=== PATIENT | male | born 1970 | race Caucasian/White ===

== ENCOUNTER → 2018-11-17 | Outpatient (CLI) | payer BC ==
--- NOTE | 2018-11-17 17:16 | CT ---
EXAMINATION TYPE: CT abdomen w con DATE OF EXAM: 11/17/2018 COMPARISON: None HISTORY: Abdominal pain and constipation x1 month. CT DLP: 1055.1 mGycm Automated exposure control for dose reduction was used. TECHNIQUE: Helical acquisition of images was performed from the lung bases through the top of iliac crest to include entire abdomen. CONTRAST: Performed with Oral Contrast and with IV Contrast, patient injected with 100ml mL of Isovue 300. FINDINGS: Lung bases are clear of infiltrate. There is no pleural effusion. Heart size is normal. There is slight decreased density in the liver consistent with some fatty infiltration. Spleen appear s normal. Stomach appears normal. Gallbladder appears normal. Bile ducts are not dilated. There is no evidence of pancreatic mass. There is a 1 cm nodule on the left adrenal gland. Kidneys show satisfactory contrast opacification. T here is no hydronephrosis. There is 3 cm cortical cyst upper pole left kidney. There is no retroperit meza adenopathy. Ureters are not dilated. There is no sign of mesenteric edema. There is contrast in the appendix which appears normal. Small b owel appears normal. There is no free air. There is no ascites. IMPRESSION: MILD FATTY INFILTRATION OF THE LIVER. LEFT RENAL CORTICAL CYST. LEFT ADRENAL NODULE WITH SOFT TISSUE DENSITY IS INDETERMINATE. I DO NOT SEE A CAUSE FOR ABDOMINAL JENNIFER N.
== END | disposition home or self-care (01) ==
LOC: RADCTMAIN 15:45
PROVIDERS: ATTEND Family Medicine
DX: K76.0 Fatty (change of) liver, not elsewhere classified (principal); K76.89 Other specified diseases of liver
CPT/HCPCS: 74160; Q9967

== ENCOUNTER 2020-03-02 11:23 | Observation (INO) | payer BC ==
[2020-03-02] MEDS: SODIUM CHLORIDE 0.9% 1,000 ML IV SCH (13:30)
[2020-03-02 14:36] LABS: Basophils # (A) 0.1 k/uL (0-0.2); Basophils % (A) 1 %; Eosinophils # (A) 0.2 k/uL (0-0.7); Eosinophils % (A) 2 %; HCT 48.2 % (39.0-53.0); HGB 16.6 gm/dL (13.0-17.5); Lymphocytes # (A) 1.6 k/uL (1.0-4.8); Lymphocytes % (A) 20 %; MCH 35.5 pg (25.0-35.0); MCHC 34.5 g/dL (31.0-37.0); MCV 102.9 fL (80.0-100.0); Macrocytosis Slight; Mean Platelet Volume 7.4; Monocytes # (A) 0.6 k/uL (0-1.0); Monocytes % (A) 7 %; Neutrophils # (A) 5.2 k/uL (1.3-7.7); Neutrophils % (A) 67 %; Platelet Count 201 k/uL (150-450); RBC 4.68 m/uL (4.30-5.90); RDW 13.2 % (11.5-15.5); WBC 7.8 k/uL (3.8-10.6)
[2020-03-02 15:03] LABS: African American GFR (CKD) >90 (>60 ml/min/1.73 sqM); Anion Gap 6 mmol/L; Blood Urea Nitrogen 20 mg/dL (9-20); Calcium 9.1 mg/dL (8.4-10.2); Carbon Dioxide 26 mmol/L (22-30); Chloride 106 mmol/L (98-107); Glucose 100 mg/dL (74-99); Non-African American GFR(CKD) >90 (>60 ml/min/1.73 sqM); Potassium 4.4 mmol/L (3.5-5.1); Sodium 138 mmol/L (137-145)
--- NOTE | 2020-03-02 15:57 | CT ---
EXAMINATION TYPE: CT lumbar spine wo con DATE OF EXAM: 03/02/2020 3:36 PM COMPARISON: None HISTORY: Bilateral leg pain. CT DLP: 1001.5 mGycm Automated exposure control for dose reduction was used. Unenhanced CT of the lumbar spine was performed. Bone and soft tissue window settings are submitted as well as coronal and sagittal reconstructions. L1-L2: Normal disc space height. No disc herniation protrusion or central stenosis. No facet joint arthropathy. No evidence for foraminal encroachment. L2-L3: Normal disc space height. No disc herniation protrusion or central stenosis. No facet joint arthropathy. No evidence for foraminal encroachment. L3-L4: Moderate degenerative disc space narrowing. Moderate circumferential disc bulge greatest poste riorly with effacement of the ventral thecal sac. Borderline central stenosis suspected. Bilateral la teral recess stenosis noted. Bilateral foraminal encroachment. L4-L5: Moderate degenerative disc space narrowing. Moderate circumferential disc bulge greatest poste riorly with effacement of the ventral thecal sac. Borderline central stenosis suspected. Bilateral la teral recess stenosis noted. Bilateral foraminal encroachment. L5-S1: Moderate degenerative disc disease. Posterocentral subligamentous disc herniation mild in degr ee effaces the ventral thecal sac and results in bilateral lateral recess stenosis. IMPRESSION: 1. Degenerative disc disease without borderline to mild central stenosis at L3-4 and L4-5. Mild subli gamentous herniation L5-S1 with bilateral lateral recess stenosis. See above.
[2020-03-02] MEDS: GABAPENTIN 300 MG CAP PO SCH ×2 (17:01→21:09)
[2020-03-02] MEDS: HYDROcodone/APAP 7.5-325MG 1 EACH TAB PO SCH ×2 (17:01→21:09)
[2020-03-02] MEDS: PANTOPRAZOLE 40 MG/10 ML VIAL IVP SCH (17:01)
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
[2020-03-02] MEDS ORDERED: clonazePAM 0.5 MG TAB PO SCH (21:00)
[2020-03-02] MEDS ORDERED: traZODone HCL 50 MG TAB PO SCH (21:00)
[2020-03-02] MEDS: methylPREDNISolone SOD SUCCI 40 MG/ML 1 ML VIAL IV SCH (21:08)
[2020-03-02] MEDS: ATENOLOL 25 MG TAB PO SCH (21:09)
[2020-03-03] MEDS: methylPREDNISolone SOD SUCCI 40 MG/ML 1 ML VIAL IV SCH ×3 (02:22→15:39)
[2020-03-03] MEDS: SODIUM CHLORIDE 0.9% 1,000 ML IV SCH (04:56)
[2020-03-03 05:52] LABS: Basophils % (A) 0 %; Eosinophils % (A) 1 %; HCT 50.5 % (39.0-53.0); HGB 16.7 gm/dL (13.0-17.5); Lymphocytes # (A) 0.7 k/uL (1.0-4.8); Lymphocytes % (A) 11 %; MCH 34.4 pg (25.0-35.0); MCHC 33.1 g/dL (31.0-37.0); MCV 103.9 fL (80.0-100.0); Macrocytosis Slight; Mean Platelet Volume 7.3; Monocytes # (A) 0.1 k/uL (0-1.0); Monocytes % (A) 2 %; Neutrophils # (A) 5.5 k/uL (1.3-7.7); Neutrophils % (A) 86 %; Platelet Count 208 k/uL (150-450); RBC 4.86 m/uL (4.30-5.90); RDW 13.1 % (11.5-15.5); WBC 6.4 k/uL (3.8-10.6)
[2020-03-03 06:02] LABS: African American GFR (CKD) >90 (>60 ml/min/1.73 sqM); Anion Gap 5 mmol/L; Blood Urea Nitrogen 15 mg/dL (9-20); Calcium 8.4 mg/dL (8.4-10.2); Carbon Dioxide 20 mmol/L (22-30); Chloride 109 mmol/L (98-107); Glucose 167 mg/dL (74-99); Non-African American GFR(CKD) >90 (>60 ml/min/1.73 sqM); Potassium 4.9 mmol/L (3.5-5.1); Sodium 134 mmol/L (137-145)
[2020-03-03 06:12] LABS: Glucose,Whole Blood 160 mg/dL (75-99)
[2020-03-03] MEDS: ATENOLOL 25 MG TAB PO SCH (08:27)
[2020-03-03] MEDS: PANTOPRAZOLE 40 MG/10 ML VIAL IVP SCH (08:27)
[2020-03-03] MEDS: HYDROcodone/APAP 7.5-325MG 1 EACH TAB PO SCH ×2 (08:27→15:38)
[2020-03-03] MEDS: GABAPENTIN 300 MG CAP PO SCH ×2 (08:27→15:39)
[2020-03-03] MEDS: INSULIN ASPART (NovoLOG) 100 UNIT/ML VIAL SQ SCH ×2 (08:28→15:42)
[2020-03-03] MEDS ORDERED: HYDROCHLOROTHIAZIDE 50 MG TAB PO SCH (09:00)
[2020-03-03] MEDS ORDERED: FOLIC ACID 1 MG TAB PO SCH (09:00)
[2020-03-03 10:11] VITALS: BP 130/80; PULSE 60; RESP 16; TEMP 97.7
--- NOTE | 2020-03-03 10:28 | HP ---
HISTORY AND PHYSICAL A 50-year-old white male who was admitted to the hospital due to significant severe pain, retractable pain, unable to walk on his legs, his legs giving out on him due to severe numbness in his feet. Failing Neurontin and [place] at home. On a CAT scan he has severe lumbar stenosis for which MRI has been ordered. Started on IV steroids and has been consulted to do lumbar epidurals. He had a folic acid deficiency for which oral pills did not relieve his pain. He has been prediabetic. He had no bowel or bladder dysfunction. Awaiting MRI report, started on IV Solu-Medrol. History of severe insomnia, hypertension, neuropathy unclear etiology bilateral legs. He had L4, L5, S1 fractures in the past. His back goes out on him all the time, depression, irritable bowel syndrome, severe anxiety and insomnia, right shoulder surgery x2 for crush injury. FAMILY HISTORY: Father with myocardial infarction. Mother is healthy. HOME MEDICATIONS: Tenormin 25 b.i.d., folic acid 1 mg daily, gabapentin 600 q.i.d., [place] 7.5 t.i.d., HydroDIURIL 50 daily, Klonopin 0.5 q.h.s., Requip 1 mg daily, Desyrel 50 mg daily. ALLERGIES: Allergic to BEE VENOM. Temperature 98, pulse 74, respiratory rate 14 to 18, blood pressure 130/89. CARDIOVASCULAR: S1, S2. LUNGS: Clear. GI: Soft. HEMATOLOGIC: Negative Homans. NEUROLOGIC: Decreased sensation bilateral feet up to his mid calves. negative. Ataxia negative. ASSESSMENT: Severe lumbar stenosis with neuropathy in the legs, legs giving out. Neurology suggests spinal stenosis versus transverse myelitis, Guillian-Hugo less likely due to hyperreflexia. He is getting MRIs of his thoracic and lumbar spine. Getting B12 and folic acid levels. He will need EMG's, wait for [facility] for probable lumbar epidurals. MMODL / IJN: [id number] /
[2020-03-03 11:44] LABS: Folate, Serum 20.5 ng/mL; Protein, Total 5.8 g/dL (6.2-8.2)
[2020-03-03 12:04] LABS: Glucose,Whole Blood 143 mg/dL (75-99)
[2020-03-03 15:09] LABS: Hemoglobin A1C 5.1 % (4.0-6.0)
--- NOTE | 2020-03-03 15:59 | MR ---
EXAMINATION TYPE: MR tspine/lspine wo/w con DATE OF EXAM: 03/03/2020 COMPARISON: CT lumbar spine 03/02/2020 HISTORY: Parasthesia sai feel TECHNIQUE: Multiplanar, multisequence images of the lumbar and thoracic spine is performed without and with IV c ontrast, utilizing 8.5 mL intravenous Gadavist FINDINGS: Thoracic spine MRI: Thoracic vertebral bodies show preserved height, alignment, and bone marrow signal. Disc spaces are m aintained. There is no evident foraminal encroachment or spinal stenosis. T7-8 shows a minimal branch service associate ior disc herniation. Some facet arthropathy changes are also present. Facet arthropathy changes are a lso present at the lower thoracic spine. The thoracic cord signal is normal. There is no abnormal enhancement on contrast administration. Some patchy density present at the posterior left lung base may represent subsegmental atelectatic change . There is likely a cortical cyst associated with the left kidney which is not well evaluated. It lore sures approximately 3 cm in AP dimension. Lumbar spine MRI: Sagittal images of the lumbar spine show vertebral body heights and alignment to appear satisfactory. The intervertebral discs demonstrate some loss of disc height signal greatest at L5-S1, some loss of disc height signal at L3-4, loss of disc signal L2-3, there is multilevel spondylosis with endplate discogenic marrow signal change. The conus medullaris is normal in position and signal. The bone ma rrow signal intensity is within normal limits. Axial images show no significant spinal stenosis or foraminal encroachment with exception of some cir cumferential lateral extension of endplate disc complex at L5-S1 encroaching on the foramina, there i s posterior disc bulge present likely contacting the anterior thecal sac and proximal S1 nerve roots. No abnormal enhancement following contrast administration. Minimal posterior disc bulge present L4-5 , L3-4 causing only slight anterior mass effect on the thecal sac. IMPRESSION: Mild degenerative disc disease as described.
--- NOTE | 2020-03-03 16:18 | P.PN ---
Subjective Progress Note Date: 03/03/20 Patient feels his symptoms are getting worse. He is having more paresthesias and burning in the feet and distal lower extremities. Patient denies any symptoms whatsoever in the hands. Patient having difficulty walking because of paresthesias in the feet. Objective - Vital Signs Vital signs: Vital Signs Temp 97.7 F 03/03/20 07:28 Pulse 60 03/03/20 07:28 Resp 16 03/03/20 07:28 BP 130/80 03/03/20 07:28 Pulse Ox 97 03/03/20 07:28 Intake & Output 03/02/20 03/03/20 03/03/20 18:59 06:59 18:59 Intake Total 180 240 Balance 180 240 Weight 86 kg Intake: Oral 180 240 Other: Voiding Method Toilet Toilet Toilet # Voids 1 2 1 - Exam Patient's mental status, speech and language functions are normal. Cranial nerves normal. Muscle strength is completely normal in the arms and legs distally and proximally. Reflexes are 2 in the upper extremities, 3 at the right knee, 2+ in the left knee. Ankles are 1+. Plantars are flat bilaterally. No clonus. Patient continues to have significant paresthesias distally in the legs. - Labs CBC & Chem 7: 03/03/20 05:30 03/03/20 05:30 Labs: Abnormal Lab Results - Last 24 Hours (Table) 03/03/20 03/03/20 03/03/20 Range/Units 05:30 05:30 05:30 MCV 103.9 H (80.0-100.0) fL Lymphocytes # 0.7 L (1.0-4.8) k/uL Sodium 134 L (137-145) mmol/L Chloride 109 H (98-107) mmol/L Carbon Dioxide 20 L (22-30) mmol/L Glucose 167 H (74-99) mg/dL POC Glucose (mg/dL) (75-99) mg/dL Total Protein (PEP) 5.8 L (6.2-8.2) g/dL 03/03/20 03/03/20 Range/Units 06:11 12:01 MCV (80.0-100.0) fL Lymphocytes # (1.0-4.8) k/uL Sodium (137-145) mmol/L Chloride (98-107) mmol/L Carbon Dioxide (22-30) mmol/L Glucose (74-99) mg/dL POC Glucose (mg/dL) 160 H 143 H (75-99) mg/dL Total Protein (PEP) (6.2-8.2) g/dL Assessment and Plan Assessment: * 50-year-old male admitted with progressive burning paresthesias of the lower extremities mainly involving the feet, has progressed to involve up to bilat eral mid calves. Patient's examination continues to show normal strength, however reflexes have slightly diminished today particularly in the ankles, as compared to the examination from yesterday. Rule out Guillain-Quintana syndrome. No evidence of thoracic or lumbar spinal stenosis. * Macrocytosis, unclear cause. B12, folate normal. Patient completed denies significant alcohol consumption. * Chronic back pain. Plan: * MRI of the lumbar and thoracic spine revealed mild degenerative changes. No abnormal cord signal. No spinal stenosis. * B12 810, folate 20.5, TSH 1.44 normal. Hemoglobin A1c 5.1, YAYA negative, Lyme titer negative. Vitamin B6, serum protein electrophoresis and immunofixation electrophoresis still pending. As no obvious pathology noted at the level of the spine, patient needs to be ruled out for Guillain-Quintana syndrome. If confirmed, may benefit from IVIG. Suggest lumbar puncture to evaluate for proteins, glucose, cell count with differential and MS panel. EMG and nerve conductions of bilateral lower extremities. This can be performed at outpatient. We will also add hepatic panel, hepatitis C antibody, immunoglobulins, Sjogren's antibodies. These test results can be followed up with neurologist locally. Neurology coverage not available on the weekend.
[2020-03-03 16:33] LABS: Albumin 3.9 g/dL (3.5-5.0); Bilirubin, Delta 0.1 mg/dL (0.0-0.2); Bilirubin,Unconjugated 0.5 mg/dL (0.0-1.1); Total Bilirubin 0.6 mg/dL (0.2-1.3); Total Protein 6.4 g/dL (6.3-8.2)
[2020-03-04] MEDS ORDERED: PANTOPRAZOLE 40 MG TABLET PO SCH (07:30)
[2020-03-04 10:56] LABS: Hepatitis C IgG Antibody Non-Reactive (Non-Reactive)
[2020-03-06 12:10] LABS: Gamma Globulin 0.89 g/dL (0.70-1.50)
[2020-03-06 15:01] LABS: HIV 2 AB Non-Reactive (Non-Reactive); HIV AB P24 Non-Reactive (Non-Reactive); HIV P24 AG Non-Reactive (Non-Reactive)
[2020-03-08] MEDS ORDERED: ERGOCALCIFEROL 50,000 UNIT CAP PO SCH (09:00)
== END 2020-03-03 16:50 | disposition home or self-care (01) ==
LOC: 1SOBS 12:43
PROVIDERS: ADMIT Family Medicine; ATTEND Family Medicine
DX: M48.061 Spinal stenosis, lumbar region without neurogenic claudication (principal); G62.9 Polyneuropathy, unspecified; D75.89 Other specified diseases of blood and blood-forming organs; E55.9 Vitamin D deficiency, unspecified; F32.9 Major depressive disorder, single episode, unspecified; F41.9 Anxiety disorder, unspecified; G47.00 Insomnia, unspecified; G89.29 Other chronic pain; I10 Essential (primary) hypertension; K58.9 Irritable bowel syndrome, unspecified; M51.26 Other intervertebral disc displacement, lumbar region; R73.03 Prediabetes; Z79.899 Other long term (current) drug therapy; Z82.49 Family history of ischemic heart disease and other diseases of the circulatory system; Z03.818 Encounter for observation for suspected exposure to other biological agents ruled out
CPT/HCPCS: 96374; 96375; 96376; 84207; 86803; 80048 ×2; 80076; 84443; 82607; 82746; 85025 ×2; 82784 ×3; 86618; 84165; 86038; 86235; 87390; 86334; 83036; 72131; 72157; 72158; G0378 ×2; G0379; U0003; J2920 ×2; C9113 ×2; A9585

== ENCOUNTER 2020-03-07 09:21 | Day surgery (SDC) | payer BC ==
[2020-03-07] MEDS ORDERED: LACTATED RINGERS 1,000 ML IV SCH (09:36)
[2020-03-07 09:45] VITALS: RESP 20; TEMP 96.1
[2020-03-07] MEDS ORDERED: LIDOCAINE 1% (10MG/ML) FOR IV START INTRADERMA ONE (09:54)
[2020-03-07 09:55] LABS: Glucose,Whole Blood 124 mg/dL (75-99)
[2020-03-07] MEDS ORDERED: MIDAZOLAM 2 MG/2 ML VIAL ONE (10:02)
[2020-03-07] MEDS ORDERED: fentaNYL (PF) 50 MCG/ML 2 ML AMP ONE (10:02)
[2020-03-07] MEDS ORDERED: IV FLUID CONTINUATION 1,000 ML IV ONE (10:19)
--- NOTE | 2020-03-07 10:20 | P.PCN ---
Date of Procedure: 03/07/20 Procedure(s) Performed: Preoperative diagnosis: 1-Objsqyrc-Vmpj syndrome . 2-Multiple sclerosis Post operative diagnoses: Same as preop diagnosis. Procedure= lumbar puncture Anesthesia= moderate sedation with Versed 2 mg and fentanyl 100 g, and local infiltration with lidocaine 1% 2 mL. Condition: stable Complication: none. Description of the procedure procedure risk and benefits discussed with the patient and family, consent signed. Patient and the procedure area placed in sitting position , monitors applied to the patient sedation given and to decrease the patient and anxiety, back prepped with chlorhexidine 3 times been local infiltration of the skin and subcutaneous tissue with lidocaine 1% 2 mL for skin and subcu interstitial frustrations at L4 5 levels then 22-gauge Quincke-type needle advanced slowly at L4- 5 interlaminar space there was positive cerebrospinal fluid which was clear, no heme, no paresthesia ,total of 8 ML of clear cerebrospinal fluid collected in 4 different tubes 2 mL in each, then the needle removed and a Band-Aid applied and patient tolerated the procedure well without any complications. Patient will follow up with the neurology service for further management
[2020-03-07 10:38] VITALS: BP 131/79; PULSE 64
[2020-03-07 12:21] LABS: Glucose,CSF 69 mg/dL (40-70); Total Protein,CSF 74 mg/dL (12-60)
[2020-03-07 12:52] LABS: Appearance,CSF Clear; CSF Tube Number 4; Nucleated Cells, CSF 2 u/L (0-5); Red Blood Cell,CSF 2 u/L (0-10)
[2020-03-08 11:06] LABS: IgG - CSF 6.6 mg/dL (0.0 - 3.4); IgG Synthesis Rate 7.34 mg/day (0.00 - 3.00); IgG/Albumin Index (CSF) 0.68 (0.00 - 0.77)
== END 2020-03-07 10:49 | disposition home or self-care (01) ==
LOC: ORPAIN 09:21
PROVIDERS: ATTEND Specialist
DX: G35 Multiple sclerosis (principal); G61.0 Guillain-Barre syndrome
CPT/HCPCS: 88108; 84157; 82945; 82040; 82042; 82784; 83916; 89050; 62270; J2250; J3010

== ENCOUNTER → 2020-05-19 | Outpatient (CLI) | payer BC ==
[2020-05-19 19:21] LABS: Protein, Total 6.5 g/dL (6.2-8.2)
[2020-05-19 19:25] LABS: Calcium 9.5 mg/dL (8.7-10.3); Creatine Kinase 61 U/L (35-257); Magnesium 1.7 mg/dL (1.5-2.4)
[2020-05-19 20:17] LABS: Folate, Serum >24.0 ng/mL
[2020-05-19 20:20] LABS: Hemoglobin A1C 5.8 % (4.0-6.0)
== END | disposition home or self-care (01) ==
LOC: LABWHC1 13:27
PROVIDERS: ATTEND Psychiatry & Neurology Pain Medicine
DX: G89.4 Chronic pain syndrome (principal); Z51.81 Encounter for therapeutic drug level monitoring; Z79.899 Other long term (current) drug therapy
CPT/HCPCS: 36415; 82306; 82310; 82550; 82607; 82746; 83036; 83519; 83735; 84165; 84207; 84425; 84446; 84590; 84591; 84597

== ENCOUNTER 2020-08-24 01:21 | Emergency (ER) | payer BC ==
[2020-08-24 01:32] VITALS: TEMP 98.9
[2020-08-24] MEDS ORDERED: MORPHINE SULFATE 4 MG/ML SYRINGE IM STA ×2 (01:37→02:31)
--- NOTE | 2020-08-24 01:39 | ED ---
Lower Extremity Injury HPI - General Chief Complaint: Extremity Injury, Lower Stated Complaint: Rt Ankle Injury Time Seen by Provider: 08/24/20 01:32 Source: patient, family Mode of arrival: wheelchair Limitations: no limitations - History of Present Illness Initial Comments: 50-year-old male patient presents to the emergency department today for evaluat ion of right ankle pain, swelling, deformity. Patient states that about an hour prior to arrival metal cabinet fell on the ankle. Patient states she's been unable to bear weight due to the pain. States it immediately became swollen. 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 He denies any other injuries. States his tetanus vaccine is up-to-date within the last 5 years. Patient denies any headache, neck pain, back pain, chest pain, shortness of breath, dizziness, weakness, abdominal pain, nausea, vomiting, or difficulties with bowel movements or urination. - Related Data Home Medications Medication Instructions Recorded Confirmed Ergocalciferol [Vitamin D2] 50,000 unit PO Q7D 03/02/20 03/07/20 Folic Acid 1 mg PO DAILY 03/02/20 03/07/20 Gabapentin 600 mg PO QID 03/02/20 03/07/20 HYDROcodone/APAP 7.5-325MG [[place] 1 tab PO TID 03/02/20 03/07/20 7.5-325] atenoloL [Tenormin] 25 mg PO BID 03/02/20 03/07/20 clonazePAM [KlonoPIN] 0.5 mg PO HS 03/02/20 03/07/20 hydroCHLOROthiazide [Hydrodiuril] 50 mg PO DAILY 03/02/20 03/07/20 rOPINIRole HCL [Requip] 1 mg PO DAILY 03/02/20 03/07/20 traZODone HCL [Desyrel] 50 mg PO HS 03/02/20 03/07/20 Allergies Allergy/AdvReac Type Severity Reaction Status Date / Time bee venom protein (honey bee) Allergy Swelling Verified 03/02/20 13:33 Review of Systems ROS Statement: Those systems with pertinent positive or pertinent negative responses have been documented in the HPI. ROS Other: All systems not noted in ROS Statement are negative. Past Medical History Past Medical History: Hypertension Additional Past Medical History / Comment(s): Pt states he has had neurpoathy bilateral feet/ankles and now up into [facility] for past 2 months-has been seeing his PCP. Other hx: Chronic low back pain, L4/L5/S1 fractures, past R knee injury and still "goes out on me" at times, bronchitis, issue with abdominal bloating/constipation one year ago-resolved on its own. History of Any Multi-Drug Resistant Organisms: None Reported Additional Past Surgical History / Comment(s): R shoulder surgery x2 for crush injury-has hardware. Past Anesthesia/Blood Transfusion Reactions: No Reported Reaction Past Psychological History: Anxiety Smoking Status: Never smoker Past Alcohol Use History: Occasional Past Drug Use History: Marijuana - Past Family History Father Family Medical History: Myocardial Infarction ([place]) Additional Family Medical History / Comment(s): Father of a [place] pt thinks at about age 38yrs. Mother Family Medical History: No Reported History Additional Family Medical History / Comment(s): Mother is healthy General Exam Limitations: no limitations General appearance: alert, in no apparent distress, other (This is a well- developed, well-nourished adult male patient in no acute distress. Vital signs upon presentation are temperature 98.9F, pulse 51, respirations 20, blood pressure 146/89, pulse ox 97% on room air.) Respiratory exam: Present: normal lung sounds bilaterally. Absent: respiratory distress, wheezes, rales, rhonchi, stridor Cardiovascular Exam: Present: regular rate, normal rhythm, normal heart sounds. Absent: systolic murmur, diastolic murmur, rubs, gallop, clicks Extremities exam: Present: tenderness (Right ankle), normal capillary refill, other (There is soft tissue swelling and ecchymosis surrounding the right ankle, there is abrasion noted over the medial aspect. Skin is otherwise pink, warm, dry. Cap refills less than 3 seconds. Pedal and posttibial pulses 2+). Absent: normal inspection, full ROM (Diminished to the right ankle, deformity noted), pedal edema, joint swelling, calf tenderness Neurological exam: Present: alert, oriented X3, CN II-XII intact Psychiatric exam: Present: normal affect, normal mood Skin exam: Present: warm, dry, intact, normal color. Absent: rash Course Vital Signs 08/24/20 08/24/20 01:27 02:21 Temperature 98.9 F Pulse Rate 51 L 64 Respiratory 20 18 Rate Blood Pressure 146/89 126/85 O2 Sat by Pulse 97 98 Oximetry Procedures - Orthopedic Splinting/Casting Injury #1 Side: right Lower Extremity Injury Location: short leg, ankle Lower Extremity Immobilizer: posterior splint, stirrup splint Additional Comments: Well-padded with webroll. Neurovascular status intact after splint application. Skin to the toes is pink, warm, dry. Medical Decision Making - Medical Decision Making 50-year-old male patient presents to the emergency department today for evaluation of right ankle injury. Physical examination did reveal soft tissue swelling and abrasion to the medial ankle. Neurovascular status is intact. X- rays were obtained and did reveal a bimalleolar fracture. Patient was placed in a splint as documented. He'll be discharged home with education regarding rest, ice, elevation. He is given strict instructions to not remove the splint and remain nonweightbearing to the leg. He is instructed to call orthopedics and have an appointment as soon as possible. Return he does have home pain medication. Return parameters were discussed in detail. He verbalizes understanding and agrees with this plan. - Radiology Data Radiology results: report reviewed, image reviewed 3 views of the right ankle are obtained. Report was reviewed in its entirety. Impression by Dr. Herbert shows nondisplaced horizontal fracture of the lateral malleolus extending to the ankle mortise. Nooblique fracture of the medial malleolus extending into the ankle mortise. Disposition Clinical Impression: Bimalleolar fracture of right ankle Disposition: HOME SELF-CARE Condition: Good Instructions (If sedation given, give patient instructions): Ankle Fracture (ED), Splint Care (ED) Additional Instructions: Do not remove splint until follow-up with orthopedics. Do not put any weight on your foot. Use crutches for ambulation. Keep leg iced and elevated. Call orthopedics for appointment on Friday. Follow-up with your primary care physician for recheck in 1-2 days. Return to the emergency department for any new, worsening, or concerning symptoms. Is patient prescribed a controlled substance at d/c from ED?: No Referrals: Andres Tobias MD [Primary Care Provider] - 1-2 days Jacob Goldberg DO [Doctor of Osteopathic Medicine] - 1-2 days Time of Disposition: 02:34
--- NOTE | 2020-08-24 02:12 | XR ---
EXAM: XR Right Ankle Complete, 3 Views CLINICAL HISTORY: ankle injury TECHNIQUE: Frontal, lateral and oblique views of the right ankle. COMPARISON: No relevant prior studies available. FINDINGS: Bones/joints: Nondisplaced horizontal fracture of lateral malleolus extending to Ankle mortise. Nondisplaced oblique fracture of medial malleolus extending to ankle mortise. Subcentimeter accessory ossicle lateral to cuboid in medial to navicular bone. Likely joint effusion of ankle mortise. No dislocation. Soft tissues: Moderate amount of soft tissue swelling, worse over lateral ankle. IMPRESSION: 1. Nondisplaced horizontal fracture of lateral malleolus extending to ankle mortise. 2. Nondisplaced oblique fracture of medial malleolus extending to ankle mortise.
[2020-08-24 02:24] VITALS: BP 126/85; PULSE 64; RESP 18
== END 2020-08-24 02:52 | disposition home or self-care (01) ==
LOC: EC 01:21
DX: S82.844A Nondisplaced bimalleolar fracture of right lower leg, initial encounter for closed fracture (principal); S90.01XA Contusion of right ankle, initial encounter; I10 Essential (primary) hypertension; F41.9 Anxiety disorder, unspecified; G62.9 Polyneuropathy, unspecified; Z79.899 Other long term (current) drug therapy; Z91.030 Bee allergy status; W20.8XXA Other cause of strike by thrown, projected or falling object, initial encounter; Y92.009 Unspecified place in unspecified non-institutional (private) residence as the place of occurrence of the external cause
CPT/HCPCS: 73610; 99283; 96372 ×2; 29515; J2270

== ENCOUNTER → 2020-08-30 | Outpatient (CLI) | payer BC ==
--- NOTE | 2020-08-30 10:42 | CT ---
EXAMINATION TYPE: CT ankle RT wo con DATE OF EXAM: 08/30/2020 COMPARISON: 08/28/2020 HISTORY: Displaced Bimalleolar fracture CT DLP: 202.3 mGycm Automated exposure control for dose reduction was used. TECHNIQUE: Axial images 2 mm thick sections. Reconstructed images in the coronal and sagittal plane. Images were obtained through fiberglass splint. Three-D reconstructed images performed by the technmeron frausto on a separate computer are presented. FINDINGS: There is a comminuted fracture of the distal metaphyseal fibula. There is an oblique fracture through the medial malleolus extending to the articular surface. There may be some avulsion of the lateral tibia adjacent to the fibular fracture. No additional fractures are evident. The ankle mortise appears intact. There is soft tissue swelling at the ankle IMPRESSION: 1. COMMINUTED FRACTURE DISTAL METAPHYSEAL FIBULA. 2. MEDIAL MALLEOLAR FRACTURE WITH EXTENSION TO THE ARTICULAR SURFACE. 3. SMALL AVULSIONS FROM THE LATERAL TIBIA ADJACENT TO THE FIBULA.
== END | disposition home or self-care (01) ==
LOC: RADCTMAIN 07:19
PROVIDERS: ATTEND Orthopaedic Surgery
DX: S82.451A Displaced comminuted fracture of shaft of right fibula, initial encounter for closed fracture (principal); S82.51XA Displaced fracture of medial malleolus of right tibia, initial encounter for closed fracture; S82.201A Unspecified fracture of shaft of right tibia, initial encounter for closed fracture

== ENCOUNTER → 2020-08-30 | Day surgery (SDC) | payer BC ==
[2020-08-28 11:56] VITALS: BMI 29.5
[~2020-08-30] MED LIST: ACETAMINOPHEN TAB 500 MG TAB PO PRN; DEXAMETHASONE SOD PHOSPHATE 4 MG/ML 1 ML VIAL IV ONE; HYDROcodone/APAP 10-325MG 1 EACH TAB ONE; HYDROcodone/APAP 10-325MG 1 EACH TAB PO ONE; HYDROmorphone (PF) 1 MG/ML ONE; LACTATED RINGERS 1,000 ML IV ONE; LACTATED RINGERS 1,000 ML IV SCH; LIDOCAINE 1% (10MG/ML) FOR IV START INTRADERMA PRN; LIDOCAINE 1% INJ 10MG/ML (20 ML MDV) ONE; MIDAZOLAM 2 MG/2 ML VIAL IV PRN; MIDAZOLAM 2 MG/2 ML VIAL ONE; ONDANSETRON 4 MG/2 ML VIAL IVP ONE; ONDANSETRON 4 MG/2 ML VIAL IVP PRN; PROPOFOL 10 MG/ML 20 ML VIAL IV ONE; ROPIVACAINE 5 MG/ML 30 ML VIAL ONE; SUCCINYLCHOLINE CHLORIDE 100 MG/5 ML SYR IV ONE; ePHEDrine SULFATE/0.9% NACL/PF 50 MG/5 ML SYRINGE IV ONE; fentaNYL (PF) 50 MCG/ML 2 ML AMP ONE
[2020-08-30 12:09] VITALS: RESP 16
[2020-08-30] MEDS: fentaNYL (PF) 50 MCG/ML 2 ML AMP IVP PRN ×3 (12:46→16:23)
--- NOTE | 2020-08-30 13:04 | P.PN ---
Progress Note - Text Progress Note Date: 08/30/20 Orthopedic Surgery Risk Review Andres Weiner is a 50-year-old male presenting for evaluation of sudden onset right sided ankle pain pain, inability to ambulate after all from standing with a twisting injury. It was my pleasure to have seen and examined Andres Weiner. In our visit today we have had a chance to go over subjective complaints, physical examination findings and treatments including the natural course history without intervention and various interventional options. His imaging demonstrates bimalleolar ankle fracture on the right. On physical exam, Andres Weiner demonstrates pain with motion of right ankle with swelling, which is NV intact at this time. I have explained to the patient that this fracture needs stabilization. Based on the patients imaging, physical exam, and the rapid progression and disabling nature of her symptoms, at this time I recommend surgery in the form or a: ORIF of right ankle I discussed the risk and benefits of this procedure at length with Andres Weiner. Questions were invited and answered, and the patient wishes to proceed as outlined below. Currently, I am recommendin. Open reduction and internal fixation of the right ankle with plates and screws 2. Review of surgical risks and benefits as well as an educational packet on the proposed surgical procedure. Risks: All surgical procedures come with inherent risks, including those related to positioning, anesthesia, intraoperative findings, and postoperative complications. It is important to understand that surgery does not come with any guarantee of a successful outcome as complications and adverse events are always possible. The patient was given a handout discussing the surgical procedure and risks associated with the intervention, both of which were discussed with the patient. These risks include but are not limited to the following: - Experiencing same, different or even worse symptoms compared to before surgery. - Requiring further surgery or other forms of treatment presently or at some time in the future . - On an extreme but fortunately relatively rare basis severe complication such as blindness, stroke, heart attack, temporary and/or permanent nerve injury, paralysis, coma, or may occur, sometimes without known explanation. - Surgical complications may include but are not limited to risk of infection, fluid accumulation in the surgical dissection site, including a seroma or hematoma, that requires additional surgery, wound drainage, bleeding, new numbness or weakness, vision changes/loss, spinal fluid leakage, non-healing and/or infected incision, headaches, difficulty or inability to swallow, hoarseness, hemopneumothorax, pneumothorax, injury to nerves, spinal cord, blood vessels, lymphatics or other vital organs (i.e., bowel injury, injury to the great vessels); heterotopic bone formation; complications related to the hardware such as screws, rods, including misplaced hardware, device failure, hardware fracture/breakage, or hardware loosening; retained surgical instrumentations or devices and the need for further surgery. - Medical risks of the planned surgery include but are not limited to generalized Infections to the whole body or local areas outside of the surgical site (sepsis), heart attack, bleeding, anaphylaxis, meningitis, seizure, epilepsy, hearing loss, burn martel, laceration of the head or other areas of the body, bruising, hypersensitivity of the skin, bladder over distension; allergic reaction; shoulder injury related to positioning; fat, blood and air clots to other areas of the body like heart, lungs, brain; failure of internal organs such as lungs, kidneys, liver and excessive bleeding. If blood transfusions are necessary, note that transfusions may cause intolerance reactions such as anaphylaxis or other complex reactions. Despite best efforts, the results of surgery might not heal in terms of bone, soft tissues such as skin, fascia, ligaments, and joints. [facility] is an educational center that serves as a training facility for physician assistants, nurses, orthopedic residents and fellows. Residents are physicians who are completing their surgical intensive training following medical school. They assist in the operating room with direct supervision of the attending surgeons. [place] are surgeons who have completed their training and eligible for board certification. They have opted for an elective year of more specialized training in their field. They assist in the operating room under the supervision of the attending surgeons. Physician assistants are medically trained surgical providers who function in the outpatient, inpatient, and operating room setting under the direct supervision of the attending surgeon. [facility] has multiple operating rooms with single and overlapping rooms running daily. They currently function under the required guidelines as produced by the [facility] with regards to the overlapping rooms and will continue to comply with changes to this policy as they occur. The requirements include and are complied with as follows: (1) the critical portions of the overlapping rooms will not occur at the same time, (2) the attending physician will be physically present during the critical portions of the procedure and immediately available during the entire case, and (3) a back-up attending is designated should the primary attending not be immediately available. The patient has had a chance to review all the listed information, has been given print outs detailing this information, and has had all his/her questions answered to their satisfaction. It was my pleasure to have seen and examined Andres Weiner. In our visit today we have had a chance to go over my understanding of our patient's current condition, the natural course history without intervention and various intervent ional options. Questions were invited and answered, and the patient wishes to proceed as outlined above. I have seen and examined the patient for 25 minutes and we have spent more than 50% of the time in repeat and detailed counseling about the patient's condition, its natural course history with out and as much as can be predicted with surgery and re-review of various surgical treatment options. In conclusion, Andres Weiner requested we proceed with the above suggested surgery and are willing to accept risks and limitations of the suggested surgery as nature of the disease process and our best attempts at treatment for the condition. Thank you again for allowing us to be part of your patient's care. Please don't hesitate to contact me if you have any further questions. Signed and authenticated by: Jaycob Quintana [facility] [address] [facility], [address] [address]
--- NOTE | 2020-08-30 15:00 | P.ANPRN ---
Procedure Note - Anesthesia - Nerve Block Performed Right Popliteal Time Out Performed: Yes (12:45) Date of Procedure: 08/30/20 Procedure Start Time: 12:45 Procedure Stop Time: 12:59 Location of Patient: PreOp Indication: Acute Post-Operative Pain, Requested by Surgeon (DR Sanderson) Sedation Type: Sedate with meaningful contact maintained Preparation: Sterile Prep Position: Left Lateral Catheter: None Needle Types: Pajunk (22g) Ultrasound used to visualize needle placement: Yes Ultrasound used to observe medication spread: Yes Injectate: 0.5% Ropivacaine (see comment for volume) (23cc) Blood Aspirated: No Pain Paresthesia on Injection Noted: No Resistance on Injection: Normal Image Stored and Saved: Yes Events: Uneventful and Well Tolerated
[2020-08-30 16:04] VITALS: TEMP 97
--- NOTE | 2020-08-30 16:22 | P.OP ---
Date of Procedure: 08/30/20 Preoperative Diagnosis: RIGHT bimalleolar ankle fracture, displaced, closed, comminuted. Postoperative Diagnosis: RIGHT bimalleolar ankle fracture, displaced, closed, comminuted. Procedure(s) Performed: 1. Exploration of medial malleolar and lateral malleolar fracture right ankle 2. Open reduction and internal fixation of lateral and medial malleolar fracture right ankle 3. Syndesmotic fixation RIGHT ankle. Implants: Arthrex 3.5 Distal fibular locking plate, 3.5 medial malleolar plate, short thread cannulated 4.0 screws. Anesthesia: GETA Surgeon: Jaycob Sanderson Estimated Blood Loss (ml): 50 IV fluids (ml): 1,000 Urine output (ml): 0 Pathology: none sent Condition: stable Disposition: PACU Indications for Procedure: 50 yo male presented from ED after a fall from standing. He was seen in the office and found to have an operative bimalleolar RIGHT ankle fracture with likely syndesmotic disruption. He has a history of HTN as well as tobacco use/abuse and anxiety. He denied any numbness/tingling in the leg, states only pain in the leg and inability to bear weight. He was splinted appropriately and sent home. Due to the nature of the fracture however and the large pieces, he would require fixation. Operative Findings: Comminuted distal fibular fracture as well as medial malleolar fracture with syndesmotic disruption. Description of Procedure: The patient was seen and examined in the preoperative area. All preoperative protocols were followed. Informed consent was obtained risks and benefits of the procedure were discussed at length. Risks including bleeding infection damage to the surrounding tissue and risk of reoperation were discussed with the patient. Risk of anesthesia up to and including was a discussed with the patient. These are outlined in the risk reviewed. They were willing to accept these risks and all of the risks of surgery. The patient was given a weight- based dose of antibiotics in the form of 2 g Ancef IVPB 1. The patient was seen and evaluated by the anesthesia team who deemed them fit for surgery. The site was marked, the patient was willing to proceed with the procedure. The patient was transferred to the operative suite by the Department of anesthesia. There were then drifted off to sleep by the department of anesthesia and Gen. endotracheal intubation with a regional block was performed anesthesia was used. Once adequate anesthesia had been obtained the patient was carefully transferred to the operative bed. All bony prominences were padded accordingly. SCDs were placed on the nonoperative lower extremities. Arms were well padded. Right leg was exposed tourniquet was placed around the upper thigh and well- padded. 10:15 drape was placed around this. The patient's right hip was bumped and placed on a bone foam for stability. The nonoperative lower extremity is well-padded and secured to the table safety strap was placed around the patient. Arms were placed on arm boards well-padded and out to the side. Preoperative briefing was done with the operative team and everyone was ready for the procedure to start. The patients right leg was then prepped and draped in the normal sterile fashion. Timeout was then performed and all parties in agreement with the procedure to be performed. Lateral malleoli or region was identified and fracture was marked with bile marking and C-arm. The joint line was also marked. Skin incision was then made on the lateral aspect of the ankle and tenotomy and pickups were used for subcu dissection until the periosteal membrane was encountered of the fibula. A neck and a periosteal membrane was made and then a wood handled periosteal elevator was used to elevate and make room or on the bone. The fracture was comminuted and displaced, and a portion anteriorly as well as posteriorly. A pin was placed a to P hold this combination in place distally. The fracture was reduced and held in place with clips. This is done under fluoroscopic guidance. The plate was then selected and pinned in place and AP and lateral fluoroscopy confirmed good placement of the plate and good reduction of the fracture. Distal screws were then placed in a cortically in a locking fashion. Proximal screws were then placed our fluoroscopic guidance. Stress tests with a cotton test as well as external stress tests were performed external stress test was negative but cotton test revealed displacement of the tib-fib joint and so tib- fib joint was compressed and syndesmotic screws were placed proximal to the joint line but in line with the joint line. This area was thoroughly irrigated with normal sterile saline then. Attention was then drawn to the medial malleolus. Skin incision was bile marked and then made over the medial malleolus curving anteriorly over the distal tip. Subcu tissues dissection was done bluntly with tenotomies and pickups. Fracture was identified and subperiosteal dissection was performed to allow for fracture visualization. Fracture was highly comminuted posteriorly as well as superiorly. Reduction was performed with the dental pick. The flexion fracture was cleaned out with normal sterile saline and scraped. To alleviate fracture hematoma. Under fluoroscopic guidance then 2 pins were placed in parallel from the anterior colliculus of posterior colliculus of the medial malleolus. Medial malleolar plate was then selected and under fluoroscopic guidance placed. This was tamped into place. One of the cannulated screws then measured and placed followed by a compressive nonlocking proximal shaft screw followed by a locking proximal screw. The second medial malleolus screw was then placed with short threads to allow for compression across the fracture as well. This held alignment and was stable and allowed for good fracture reduction. AP and lateral radiographs were taken again and showed adequate fracture reduction with no stable syndesmotic region. The wounds were copiously irrigated with normal sterile saline. Any bleeders were cauterized. Deep periosteal layer was closed with 0 Vicryl medially and laterally subcu was closed with 2-0 Vicryl and skin was closed with 2-0 nylon in a mattress fashion. This was then cleaned and dressed sterilely with sterile Adaptic 4 x 4's ABDs and Kerlix. Stockinette was then placed. Followed by Freedman roll and a well-padded short-leg cast was placed. This was bivalved and overwrapped with an Kaden wrap. The patient was then transferred back to their hospital bed. There were awakened by department of anesthesia having tolerated the procedure very well with no complications. The patient was then transported to the postoperative care unit in stable condition.
[2020-08-30] MEDS: HYDROmorphone 0.5 MG/0.5 ML SYRINGE IVP PRN ×2 (16:29→16:38)
--- NOTE | 2020-08-30 17:39 | XR ---
Fluoroscopy INDICATION: Pain FINDINGS: Fluoroscopy time: 2 minutes 10 seconds. Images obtained: 9. IMPRESSIONS: 1. Documentation of fluoroscopy.
[2020-08-30 18:08] VITALS: BP 124/73; PULSE 55
== END | disposition home or self-care (01) ==
LOC: OR 11:16
PROVIDERS: ATTEND Orthopaedic Surgery
DX: S82.841A Displaced bimalleolar fracture of right lower leg, initial encounter for closed fracture (principal); G62.9 Polyneuropathy, unspecified; I10 Essential (primary) hypertension; F41.9 Anxiety disorder, unspecified; Z72.0 Tobacco use; Z91.030 Bee allergy status; Z79.891 Long term (current) use of opiate analgesic; Z98.890 Other specified postprocedural states; Z87.09 Personal history of other diseases of the respiratory system; Z79.899 Other long term (current) drug therapy; X50.1XXA Overexertion from prolonged static or awkward postures, initial encounter; W19.XXXA Unspecified fall, initial encounter
CPT/HCPCS: 64445; 76942; 73610; 27814; C1713; J2250; J1100; J0690; J2405; J2001; J3010; J1170 ×2; J2795; J0330; J2704

== ENCOUNTER → 2023-06-18 | Outpatient (CLI) | payer OTHER ==
--- NOTE | 2023-06-18 19:20 | CT ---
EXAMINATION TYPE: CT chest w con DATE OF EXAM: 06/18/2023 COMPARISON: NONE HISTORY: Chest pain and shortness of breath CT DLP: 435.4 mGycm. Automated Exposure Control for Dose Reduction was Utilized. TECHNIQUE: CT scan of the thorax is performed following with IV Contrast, patient injected with 100 cc mL of Isovue 300. FINDINGS: LUNGS: Mild bibasilar linear scarring and/or atelectasis there are faint areas of groundglass opacity throughout the right upper lobe and to lesser degree in the periphery of the left upper lobe. No ple ural effusion or pneumothorax seen bilaterally. MEDIASTINUM: There are no greater than 1 cm hilar or mediastinal lymph nodes. No cardiomegaly or pe ricardial effusion is seen. Coronary artery calcification is present which is noted marker for under lying coronary artery disease. OTHER: Liver is diffusely low dense consistent with fatty infiltrative hepatocellular disease. There is 3.5 cm simple appearing thin-walled cyst in the upper pole left kidney axial image 71. Bilateral s ubareolar flame-shaped gynecomastia is present. IMPRESSION: 1. Areas of groundglass opacity in the bilateral upper lungs greatest in the right upper lobe could r eflect multifocal infiltrates and/or edema. Consider follow-up study if symptoms do not resolve.
== END | disposition home or self-care (01) ==
LOC: RADCTMAIN 18:37
PROVIDERS: ATTEND Family Medicine
DX: R07.9 Chest pain, unspecified (principal); R06.02 Shortness of breath; R91.8 Other nonspecific abnormal finding of lung field
CPT/HCPCS: 71260; Q9967

== ENCOUNTER → 2023-09-30 | Outpatient (CLI) | payer OTHER ==
--- NOTE | 2023-09-30 17:44 | CA ---
Transthoracic Echo Report Name: Andres Weiner Age: 53 Gender: M : 1970 Exam Date: 09/30/2023 13:07 Exam Location: [facility] Ht (in): 69 Wt (lb): 195 Ordering Physician: Andres Tobias MD Attending/Referring Phys: Behavioral Therapist Kim Roldan RDCS Procedure CPT: Indications: I50.30 UNSPECIFIED DIASTOLIC (CONGESTIVE) HEART FA Cardiac Hx: Technical Quality: Technically difficult study Contrast 1: Total Dose (mL): Contrast 2: Total Dose (mL): MEASUREMENTS (Male / Female) Normal Values 2D ECHO LV Diastolic Diameter PLAX 3.4 cm 4.2 - 5.9 / 3.9 - 5.3 cm LV Systolic Diameter PLAX 2.4 cm IVS Diastolic Thickness 1.2 cm 0.6 - 1.0 / 0.6 - 0.9 cm LVPW Diastolic Thickness 1.0 cm 0.6 - 1.0 / 0.6 - 0.9 cm LV Relative Wall Thickness 0.7 LA Systolic Diameter LX 4.1 cm 3.0 - 4.0 / 2.7 - 3.8 cm LA Volume 38.9 cm??? 18 - 58 / 22 - 52 cm??? LA Volume Index 18.5 cm???/m??? 16 - 28 cm???/m??? DOPPLER AV Peak Velocity 177.7 cm/s AV Peak Gradient 12.6 mmHg LVOT Peak Velocity 189.7 cm/s LVOT Peak Gradient 14.4 mmHg MV Area PHT 5.8 cm??? Mitral E Point Velocity 85.3 cm/s Mitral A Point Velocity 113.9 cm/s Mitral E to A Ratio 0.7 MV Deceleration Time 129.8 ms PV Peak Velocity 113.9 cm/s PV Peak Gradient 5.2 mmHg FINDINGS Left Ventricle Left ventricular ejection fraction is estimated at 55-60 %.normal left ventricular wall motion. Left ventricular cavity size normal. Mildly increased left ventricular wall thickness. Right Ventricle Normal right ventricular size. Right Atrium Normal right atrial size. Left Atrium Mildly increased left atrial diameter. Mitral Valve No evidence for mitral valve regurgiataion.structurally normal mitral valve. Aortic Valve No evidence for aortic valve insufficency or stenosis.trileaflet aortic valve. Tricuspid Valve Structurally normal tricuspid valve. Trace to mild tricuspid regurgitation. Pulmonic Valve Structurally normal pulmonic valve. Trace pulmonic regurgitation. Pericardium No pericardial effusion. Aorta Normal size aortic root and proximal ascending aorta. CONCLUSIONS Technically difficult study. Normal left ventricle size and systolic function Limited Doppler study with trace to mild tricuspid regurgitation Previewed by: Dr. Emerson Brito MD (Electronically Signed) Final Date: 30 September 2023 17:44
== END | disposition home or self-care (01) ==
LOC: RADECHMAIN 13:00
PROVIDERS: ATTEND Family Medicine
DX: I36.1 Nonrheumatic tricuspid (valve) insufficiency (principal); I50.30 Unspecified diastolic (congestive) heart failure
CPT/HCPCS: 93306

== ENCOUNTER → 2024-11-12 | Outpatient (CLI) | payer OTHER ==
--- NOTE | 2024-11-13 07:56 | MR ---
EXAMINATION TYPE: MR hip RT wo con DATE OF EXAM: 11/12/2024 8:50 PM COMPARISON: Outside pelvic and right hip x-rays November 08, 2024 CLINICAL INDICATION: Male, 54 years old with history of M25.551 PAIN IN RIGHT HIP, Fell and dislocate d RT hip January 2024, RT hip pain IV Contrast: cc (None if empty) Standard multiplanar, multisequence MRI departmental protocol Multiplanar, multisequence images of the pelvis focusing on the right hip were acquired without contr ast. FINDINGS: Hip joint spaces show mild acetabular spurring bilaterally. No significant joint space loss . There is serpiginous diminished T1 signal bilaterally more prominent in the right hip. There is anastasia e heterogeneity bilaterally with additional increased T2 signal superiorly in both femoral heads and more prominent increased T2 signal in the right hip through the femoral head into the femoral neck. T here is some subchondral cystic change along the anterolateral aspect of the head neck junction in th e right hip. There is some ill-defined fluid surrounding the right femoral head and neck. Symmetric s mall hip joint effusions are present. Some increased signal at level of the greater trochanters is se en bilaterally consistent with insertional tendinosis. There is more prominent fluid signal or edema in the right pelvic muscles with thin-walled fluid collections superior to the right hip extending an terior to the right hip. No groin hernia or adenopathy is seen bilaterally. Prostate gland is within normal limits. No free fluid in the pelvis is seen. IMPRESSION: Retroperitoneal intramuscular fluid and multifocal fluid collections consistent with anterior muscula r injury in the region of the right thigh. There is bilateral avascular necrosis with more severe fin dings in the right hip present as detailed above. [facility], , 11/13/2024 7:53 AM
== END | disposition home or self-care (01) ==
LOC: RADMRIMAIN 19:45
PROVIDERS: ATTEND Orthopaedic Surgery
DX: M87.051 Idiopathic aseptic necrosis of right femur (principal)

== ENCOUNTER → 2025-02-17 | Outpatient (CLI) | payer OTHER | END | disposition home or self-care (01) | LOC: LABPAT 14:16 | PROVIDERS: ATTEND Orthopaedic Surgery | DX: M16.11 Unilateral primary osteoarthritis, right hip (principal) | CPT/HCPCS: 86850; 86900; 86901; 87070 ==

== ENCOUNTER 2025-02-22 05:40 | Day surgery (SDC) | payer OTHER ==
[2025-02-18 12:48] VITALS: BMI 29.5
--- NOTE | 2025-02-21 08:21 | P.HPOR ---
History of Present Illness H&P Date: 02/21/25 Chief Complaint: Right hip pain The patient is a 55-year-old male who presents with progressive right hip pain for the past year. He notes groin and thigh pain with any weightbearing activities. He has been limping. He takes medications without much relief. Review of Systems Per HPI Past Medical History Past Medical History: COPD, Hyperlipidemia, Hypertension, Osteoarthritis (OA) Additional Past Medical History / Comment(s): R hip pain, takes tadalafil for severe neuropathy bilateral feet/ankles, chronic low back pain, hx L4/L5/S1 fractures, hx right knee injury, hx Bronchitis. Wears oxygen at hs-3L. History of Any Multi-Drug Resistant Organisms: None Reported Past Surgical History: Orthopedic Surgery Additional Past Surgical History / Comment(s): Right shoulder surgery X2 for crush injury-had hardware which was taken out. Past Anesthesia/Blood Transfusion Reactions: No Reported Reaction Additional Past Anesthesia/Blood Transfusion Reaction / Comment(s): No hx of blood transfusion Smoking Status: Never smoker - Past Family History Father Family Medical History: Myocardial Infarction (PA) Additional Family Medical History / Comment(s): Father of a PA at age 38yrs. Mother Family Medical History: No Reported History Additional Family Medical History / Comment(s): Mother is healthy Medications and Allergies Home Medications Medication Instructions Recorded Confirmed Type Gabapentin 300 mg PO TID 03/02/20 02/18/25 History rOPINIRole HCL [Requip] 3 mg PO HS 03/02/20 02/18/25 History traZODone HCL [Desyrel] 150 mg PO HS 03/02/20 02/18/25 History Atorvastatin [Lipitor] 40 mg PO DAILY 02/18/25 02/18/25 History Budesonide/Glycopyr/Formoterol 1 puff INHALATION DAILY 02/18/25 02/18/25 History [Breztri Aerosphere Inhaler] Cariprazine HCl [Vraylar] 1.5 mg PO DAILY 02/18/25 02/18/25 History Cyclobenzaprine [Flexeril] 5 mg PO HS 02/18/25 02/18/25 History DULoxetine HCL [Cymbalta] 60 mg PO BID 02/18/25 02/18/25 History Dextroamphetamine/Amphetamine 30 mg PO DAILY 02/18/25 02/18/25 History [Adderall Xr 30 mg Capsule] Fluticasone/Umeclidin/Vilanter 1 inhalation INHALATION DAILY 02/18/25 02/18/25 History [Trelegy Ellipta 100-62.5-25] HYDROcodone/APAP 7.5-325MG [Kerrick 1 tab PO Q4-6H PRN 02/18/25 02/18/25 History 7.5-325] Montelukast [Singulair] 10 mg PO DAILY 02/18/25 02/18/25 History Omeprazole 40 mg PO DAILY 02/18/25 02/18/25 History Yupelri Nebulizer 175mcg/3ml 175 mcg INHALATION DAILY 02/18/25 02/18/25 History allopurinoL 300 mg PO DAILY 02/18/25 02/18/25 History predniSONE [Deltasone] 20 mg PO DAILY 02/18/25 02/18/25 History tadalafiL 10 mg PO DAILY 02/18/25 02/18/25 History Allergies Allergy/AdvReac Type Severity Reaction Status Date / Time bee venom protein (honey bee) Allergy Swelling Verified 02/18/25 10:59 Physical Examination - Hip right Gait: antalgic Tenderness with palpation: anterior Pain with motion: internal rotation and hip flexion ROM: flexion: 60 degrees ROM: internal rotation: 0 degrees (With pain) ROM: external rotation: 60 degrees Crepitus with motion: Yes Strength: extension: 5/5 Strength: flexion: 5/5 Strength: adduction: 5/5 Tests: impingement tests: positive Results Patient is a well-developed well-nourished male approximate 5 foot 9, 201 pounds of mesomorphic habitus. HEENT exam is nonfocal, neck is supple. He has painful passive motion of the right hip. He has 1 cm shortening of the right lower extremity. The left. He has an antalgic gait pattern. His distal neurovascular exam shows stocking paresthesias bilaterally. - Diagnostic results Hip x-ray: image reviewed (X-rays of the right hip show right hip avascular necrosis with collapse of the femoral head.) Assessment and Plan Assessment: Stage IV right hip avascular necrosis History of neuropathy Plan: I talked to the patient at length regarding his condition along with treatment options. At this point he is quite symptomatic despite conservative measures. After a thorough discussion he opts to proceed with surgery. We will plan to proceed with a right total hip arthroplasty utilizing an anterior approach. Risks and benefits were discussed at length in layman's terms. We will institute DVT prophylaxis postoperatively.
[~2025-02-22 05:40] MED LIST changes: -ACETAMINOPHEN TAB 500 MG TAB PO PRN; -DEXAMETHASONE SOD PHOSPHATE 4 MG/ML 1 ML VIAL IV ONE; -HYDROcodone/APAP 10-325MG 1 EACH TAB ONE; -HYDROcodone/APAP 10-325MG 1 EACH TAB PO ONE; -HYDROmorphone (PF) 1 MG/ML ONE; -LACTATED RINGERS 1,000 ML IV ONE; -LACTATED RINGERS 1,000 ML IV SCH; -LIDOCAINE 1% (10MG/ML) FOR IV START INTRADERMA PRN; -LIDOCAINE 1% INJ 10MG/ML (20 ML MDV) ONE; -MIDAZOLAM 2 MG/2 ML VIAL IV PRN; -MIDAZOLAM 2 MG/2 ML VIAL ONE; -ONDANSETRON 4 MG/2 ML VIAL IVP ONE; -ONDANSETRON 4 MG/2 ML VIAL IVP PRN; -PROPOFOL 10 MG/ML 20 ML VIAL IV ONE; -ROPIVACAINE 5 MG/ML 30 ML VIAL ONE; -SUCCINYLCHOLINE CHLORIDE 100 MG/5 ML SYR IV ONE; +TRANEXAMIC 1,000 MG/100ML-NACL 1,000 MG in SALINE 1 100ML.BAG IVPB PRN; -ePHEDrine SULFATE/0.9% NACL/PF 50 MG/5 ML SYRINGE IV ONE; -fentaNYL (PF) 50 MCG/ML 2 ML AMP ONE
[2025-02-22] MEDS ORDERED: LIDOCAINE 1% (10MG/ML) FOR IV START INTRADERMA PRN (05:47)
[2025-02-22] MEDS: IV FLUID CONTINUATION 1,000 ML IV ONE (06:06)
[2025-02-22 06:37] LABS: Glucose,Whole Blood 141 mg/dL (70-110)
[2025-02-22] MEDS: DEXAMETHASONE SOD PHOSPHATE 4 MG/ML 1 ML VIAL IV ONE (06:52)
[2025-02-22] MEDS: LACTATED RINGERS 1,000 ML IV SCH (06:52)
[2025-02-22] MEDS: MELOXICAM 7.5 MG TAB PO PRN (06:53)
[2025-02-22] MEDS: ACETAMINOPHEN TAB 500 MG TAB PO PRN (06:53)
[2025-02-22] MEDS: ONDANSETRON 4 MG/2 ML VIAL IVP ONE (06:53)
[2025-02-22] MEDS ORDERED: fentaNYL (PF) 50 MCG/ML 2 ML AMP IV PRN (07:00)
[2025-02-22] MEDS: MIDAZOLAM 2 MG/2 ML VIAL IV ONE (07:12)
[2025-02-22] MEDS ORDERED: TRANEXAMIC 1,000 MG/100ML-NACL PREMIX BAG ONE (07:30)
[2025-02-22] MEDS ORDERED: PHENYLEPHRINE-0.9% NACL SYG 1,000 MCG/10 ML SYRINGE ONE (07:30)
[2025-02-22] MEDS ORDERED: PROPOFOL 10 MG/ML 20 ML VIAL IV ONE (07:30)
[2025-02-22] MEDS ORDERED: MIDAZOLAM 2 MG/2 ML VIAL ONE (07:30)
[2025-02-22] MEDS ORDERED: fentaNYL (PF) 50 MCG/ML 2 ML AMP ONE (07:30)
[2025-02-22] MEDS ORDERED: ePHEDrine 50 MG/ML 1 ML VIAL ONE (07:30)
[2025-02-22] MEDS ORDERED: KETAMINE HCL IN 0.9 % NACL 50 MG/5 ML SYRINGE ONE (07:30)
[2025-02-22] MEDS ORDERED: ROPIVACAINE 5 MG/ML 30 ML VIAL ONE (07:30)
[2025-02-22] MEDS ORDERED: LIDOCAINE 1% INJ 10MG/ML (20 ML MDV) ONE (07:30)
[2025-02-22] MEDS ORDERED: DEXAMETHASONE SOD PHOSPHATE 4 MG/ML 1 ML VIAL ONE (07:30)
[2025-02-22] MEDS: ceFAZolin 1,000 MG in SODIUM CHLORIDE 0.9% 1,000 ML IRRIGATION ONE (08:08)
[2025-02-22] MEDS: LACTATED RINGERS 1,000 ML IV ONE (09:00)
--- NOTE | 2025-02-22 09:45 | XR ---
EXAMINATION TYPE: XR Hip Limited RT DATE OF EXAM: 02/22/2025 9:40 AM COMPARISON: None. CLINICAL INDICATION: Male, 55 years old with history of TOTAL RT ANTERIOR HIP, pain TECHNIQUE: Single AP portable view of right hip is obtained immediately postoperatively. FINDINGS: Metallic hardware from right hip arthroplasty is seen and appears satisfactory in alignmen t and position. There is evidence of recent surgery with subcutaneous gas noted laterally. IMPRESSION: Metallic hardware from right hip arthroplasty is satisfactory in position. [facility], , 02/22/2025 9:43 AM
[2025-02-22] MEDS ORDERED: HYDROcodone/APAP 10-325MG 1 EACH TAB PO PRN (09:47)
[2025-02-22] MEDS ORDERED: HYDROcodone/APAP 5-325MG 1 EACH TAB PO PRN (09:47)
[2025-02-22] MEDS ORDERED: MAGNESIUM HYDROXIDE 2,400 MG/30 ML CUP PO PRN (09:47)
[2025-02-22] MEDS ORDERED: HYDROmorphone 0.5 MG/0.5 ML SYRINGE IVP PRN (09:47)
[2025-02-22] MEDS ORDERED: hydrOXYzine HCL 25 MG TAB PO PRN (09:47)
[2025-02-22] MEDS ORDERED: NALOXONE 0.4 MG/ML 1 ML VIAL IV PRN (09:47)
--- NOTE | 2025-02-22 10:07 | P.OP ---
Date of Procedure: 02/22/25 Preoperative Diagnosis: Stage IV avascular process right hip Postoperative Diagnosis: Same Procedure(s) Performed: Right total hip arthroplastypress-fitanterior approach Implants: DePuy Corail size 11/135 degree/standard collared press-fit femoral stem, 36+1.5 cobalt chrome femoral head, 54 mm York acetabular shell with neutral polyethylene liner. Anesthesia: spinal Surgeon: Nick Recio Drencher #1: Justin Corona Estimated Blood Loss (ml): 300 Pathology: none sent Condition: stable Disposition: PACU Indications for Procedure: The patient is a 55-year-old male who presents with progressive right hip pain. Upon evaluation he was noted to have stage IV avascular porosis involving the right femoral head. A discussion of the risks and benefits of operative intervention versus continued conservative measures was made with the patient. He opted to proceed with surgery. Operative risk to include infection, neurovascular injury, fracture, leg length discrepancy, instability, possible need for subsequent procedures was discussed. Informed consent was obtained. Operative Findings: As below Description of Procedure: The patient was brought to the operating room, and after induction of spinal anesthesia was placed supine on the Ema table. Positioning was checked with fluoroscopy. The right hip was then prepped and draped in a normal fashion. A 12 cm incision was then made starting 2 fingerbreadths distal and 3 finger breaths posterior to the ASIS in line with the proximal femur. The skin was incised sharply. Subcutaneous tissues were divided sharply. Electrocautery was used for hemostasis. The fascia was split in line with skin incision. The interval between the sartorius and tensor fascia marcela was then bluntly developed. The posterior fascia was opened with electrocautery. The lateral circumflex vessels were identified and cauterized prior to sectioning. A retractor was placed along the superior femoral neck as well as the anterior acetabular rim. A wide capsulotomy was performed. The neck cut was then made at a 45 angle to the shaft approximately 1 1/2 cm above the level of the lesser trochanter. The head was extracted. Attention was then paid towards preparing the acetabulum. Anterior and posterior retractors were placed. The remaining capsular labral tissue sharply debrided clearly defining the acetabular margins. I began reaming with a 49 mm reamer taking care to initially medialize then reaming at 45 of abduction and 20 of anteversion. Sequential reaming is performed up to 53 mm. A trial 54 mm acetabular shell was inserted in the same orientation and was fully seated. There was good rim fit and stability. Positioning was checked with fluoroscopy. The final 54 mm acetabular shell was inserted again at 45 of abduction and 20 of anteversion. This was fully seated. There was good rim fit and stability. Again fluoroscopy was used to check the adequacy of placement. A neutral polyethylene liner was gently impacted. Care was taken to avoid any soft tissue interposition. Pulsatile lavage was utilized. Attention was then paid towards preparing the proximal femur. The saddle region was cleared of soft tissue. A canal finder was used to find the femoral canal. Sequential broaching was performed up to size 11 taking care to lateralize proximally. A calcar mill was used to fashion the medial calcar. There was good rotational stability. A standard neck along with a 36 mm +1.5 head was placed. The hip was gently reduced. Fluoroscopy was used to check the adequacy of positioning along with leg lengths. I felt both were good. The hip was gently dislocated. The trial components were removed. The final size 11 collared standard press-fit femoral stem was inserted parallel to the posterior cortex. This was fully seated and there was good rotational stability. A 36 mm +1.5 cobalt chrome femoral head was placed. This was gently impacted. The hip was then gently reduced. Final fluoroscopic view showed adequate placement implant along with confucianist of leg length. Stability was checked with 80 of external rotation and 60 of extension of the right hip. The wound was irrigated with sterile lavage. The fascia was closed with running 0 Vicryl suture. There was minimal drainage therefore a deep drain was not placed. The second dose of IV TXA was given. The subcutaneous tissues were reapproximated interrupted 2-0 Vicryl sutures. The skin was reapproximated with 3-0 subcuticular strata fix suture. Skin tape and adhesive was applied. A sterile dressing was applied. The patient was then awoken from sedation and transferred to recovery room in good condition. Blood loss was estimated at 300 mL. No complications were incurred. Sponge and needle counts were correct at the end of the case. Justin WAHL assisted during the major components is case to include exposure, bone resection, implantation, and closure.
--- NOTE | 2025-02-22 10:45 | XR ---
EXAMINATION TYPE: XR Hip Limited RT DATE OF EXAM: 02/22/2025 10:11 AM COMPARISON: None. CLINICAL INDICATION: Male, 55 years old with history of Status post hip surgery, assess surgical alig nmsol, pain TECHNIQUE: Single AP portable view of right hip is obtained immediately postoperatively. FINDINGS: Metallic hardware from right hip arthroplasty is seen and appears satisfactory in alignmen t and position. There is evidence of recent surgery with subcutaneous gas noted laterally. IMPRESSION: Metallic hardware from right hip arthroplasty is satisfactory in position. [facility], , 02/22/2025 10:42 AM
[2025-02-22] MEDS: HYDROmorphone 0.5 MG/0.5 ML SYRINGE IVP PRN (11:05)
--- NOTE | 2025-02-22 15:30 | FL ---
KACEY [id number]. MD TIME 34 [facility], , 02/22/2025 3:27 PM
[2025-02-22] MEDS ORDERED: HYDROcodone/APAP 7.5-325MG 1 EACH TAB PO PRN (17:31)
[2025-02-22] MEDS: IPRATROPIUM-ALBUTEROL 3 ML NEB INHALATION SCH (18:24)
[2025-02-22] MEDS: HYDROmorphone 1 MG/ML 1 ML SYRINGE IVP PRN (18:26)
[2025-02-22] MEDS: [UNRECOGNIZED DRUG - OTHER] INHALATION SCH (18:26)
[2025-02-22] MEDS: HYDROcodone/APAP 7.5-325MG 1 EACH TAB PO SCH (20:17)
[2025-02-22] MEDS: CYCLOBENZAPRINE 5 MG TAB PO SCH (20:19)
[2025-02-22] MEDS: SENNOSIDES-DOCUSATE SODIUM 1 EACH TAB PO SCH (20:19)
[2025-02-22] MEDS: GABAPENTIN 300 MG CAP PO SCH (20:19)
--- NOTE | 2025-02-22 20:31 | P.ANPRN ---
Procedure Note - Anesthesia - Nerve Block Performed Right Paulino Single Time Out Performed: Yes Date of Procedure: 02/22/25 Procedure Start Time: 07:11 Procedure Stop Time: 07:16 Location of Patient: PreOp Indication: Acute Post-Operative Pain, Requested by Surgeon Sedation Type: Sedate with meaningful contact maintained Preparation: Sterile Prep Position: Supine Needle Types: Pajunk Needle Gauge: 21 Ultrasound used to visualize needle placement: Yes Ultrasound used to observe medication spread: Yes Blood Aspirated: No Pain Paresthesia on Injection Noted: No Resistance on Injection: Normal Image Stored and Saved: Yes Events: Uneventful and Well Tolerated (Ropivacaine 0.5% 20 cc plus dexamethasone 4 mg)
--- NOTE | 2025-02-23 00:08 | CONS ---
CONSULTATION HISTORY OF PRESENT ILLNESS: He is admitted for right hip surgery. He is postop at this time. Continue his home medicines, duloxetine, cyclobenzaprine, ropinirole, and trazodone. PAST MEDICAL HISTORY: COPD, depression, pulmonary hypertension, chronic degenerative disk disease, and chronic neuropathy. PHYSICAL EXAMINATION: VITAL SIGNS: Reviewed. CARDIOVASCULAR: S1, S2. LUNGS: Transmitted upper sounds. GI: Soft. HEMATOLOGY: Negative Homans. NEUROLOGIC: Alert and orient x3. Cranial nerves are intact. EXTREMITIES: Right hip in a bandage. ASSESSMENT AND PLAN: Status post hip surgery, chronic obstructive pulmonary disease, pulmonary hypertension, chronic degenerative disk disease, chronic neuropathy, dyslipidemia, hypertension, and gastroesophageal reflux disease. Continue current medications. Prognosis is guarded. Home medications are reordered. He is stable. MMODL / IJN: [id number] /
[2025-02-23 02:50] VITALS: RESP 17; TEMP 98
[2025-02-23 08:03] VITALS: BP 131/73; PULSE 98
[2025-02-23 08:24] LABS: Basophils # (A) 0.01 X 10*3/uL (0.00-0.10); Basophils % (A) 0.1 %; Eosinophils # (A) 0 X 10*3/uL (0.04-0.35); Eosinophils % (A) 0 %; HCT 32.7 % (39.6-50.0); HGB 10.9 g/dL (13.0-17.0); Immature Grans, Automated 0.50 %; Lymphocytes # (A) 1.41 X 10*3/uL (0.90-5.00); Lymphocytes % (A) 10.0 %; MCH 33.2 pg (27.0-32.0); MCHC 33.3 g/dL (32.0-37.0); MCV 99.7 FL (80.0-97.0); Monocytes # (A) 1.26 X 10*3/uL (0.20-1.00); Monocytes % (A) 8.9 %; NRBC Per 100 WBC 0 X 10*3/uL (0.00-0.01); Neutrophils # (A) 11.41 X 10*3/uL (1.80-7.70); Neutrophils % (A) 80.5 %; Platelet Count 190 X 10*3/uL (140-440); RBC 3.28 X 10*6/uL (4.40-5.60); RDW 12.5 % (11.5-14.5); WBC 14.16 X 10*3/uL (4.50-10.00)
[2025-02-23] MEDS: RIVAROXABAN 10 MG TAB PO SCH (10:33)
[2025-02-23] MEDS: predniSONE 20 MG TAB PO SCH (10:34)
[2025-02-23] MEDS: MONTELUKAST 10 MG TAB PO SCH (10:34)
[2025-02-23] MEDS: ATORVASTATIN 40 MG TAB PO SCH (10:34)
[2025-02-23] MEDS: PANTOPRAZOLE 40 MG TABLET PO SCH (10:34)
[2025-02-23] MEDS: PATIENT'S OWN (Cariprazine Hcl [Vraylar] 1.5 MG Capsule) PO SCH (10:48)
[2025-02-23] MEDS: TADALAFIL 10 MG PO SCH (10:48)
[2025-02-23] MEDS: PATIENT'S OWN (Dextroamphetamine/Amphetamine [Adderall Xr 30 Mg Capsule] 30 MG Cap.Er PO SCH (10:48)
--- NOTE | 2025-02-23 12:16 | P.DS ---
Providers Date of admission: 02/22/2025 Expected date of discharge: 02/23/25 Attending physician: Nick Recio Consults: 02/22/25 09:47 Consult Physician Routine Consulting Provider: Andres Tobias Reason/Comments: medical management s/p direct anterior right total hip arthroplasty Do you want consulting provider notified?: Yes Primary care physician: Andres Tobias [facility] Course: Date of admission: 02/22/2025 Date of discharge: 02/23/2025 Admission diagnosis: Stage IV avascular process right hip Discharge diagnosis: Same Attending physician: Dr. Recio Surgical procedures: Direct anterior right total hip arthroplasty Brief history: Patient is a 55-year-old male with a history of stage IV avascular necrosis right hip. At this point patient has failed conservative treatment measures and has opted to proceed with a elective direct anterior right total hip arthroplasty. Hospital course: Details of patient's surgery can be found in operative report. Patient tolerated the procedure well and was subsequently transported to orthopedic floor. Patient's orthopeidc and medical care was provided daily. Patient had daily laboratory tests performed for evaluation of overall blood counts. Patient had daily physical therapy to include strengthening range of motion as well as education with walker ambulation. Patient was treated with Xarelto for their postoperative DVT prophylaxis during their inpatient stay. Patient was noted to have a relatively uneventful postoperative course. Patient reported satisfactory pain control with oral pain medications by postoperative day 1. Patient showed satisfactory progress with physical therapy. Patient moved steadily through the program and had no difficulty meeting the goals by postoperative day 1. Given patient's otherwise satisfactory course and having met physical therapy goals, plan is to discharge patient home with health services on postoperative day 1. Discharge condition/disposition: Patient will be discharged home with health services in stable condition. Discharge medications: Instructions are given on resumption of patient's normal daily medications per primary care recommendation, in addition patient will be prescribed Flexeril; senna; Eliquis 2.5 mg twice daily x 2 weeks. patient to resume his home [place] and gabapentin from primary care provider. Discharge instructions: 1. Wound care and infection precautions, keep incision dry and covered while showering, no lotions, creams, moisturizers. No soaking, tubs, pools, hottubs. Do not scrub over the incision. 2. Weight-bear as tolerated with walker / cane until follow-up. 3. Ice and elevate when necessary. Do not exceed 20 minutes per hour with ice pack. 4. Utilize compression sleeve until seen at first follow up appointment. 5. Visiting nursing care. 6. Home physical therapy. 7. Pain meds and anticoagulants per prescription. 8. Pain medication has potential to cause constipation. Increase oral fluid and fiber intake. Contact primary care provider if you have not had a bowel movement within 48 hours after discharge 9. No anti-inflammatory medication until discussed at first post operative visit, this including Motrin, Aleve, Mobic, Diclofenac. 10. Follow up in office at 2 weeks postop with Jey Martinez PA-C / Justin Corona PA-C 11. Follow up with your primary care doctor 7-10 days after discharge. 12. Contact [facility] with any questions, . Assessment: Stage IV avascular process right hip Procedures: Direct anterior right total hip arthroplasty Patient Condition at Discharge: Good Plan - Discharge Summary Discharge Rx Participant: Yes New Discharge Prescriptions: No Action traZODone HCL [Desyrel] 150 mg PO HS rOPINIRole HCL [Requip] 3 mg PO HS Gabapentin 300 mg PO TID tadalafiL 10 mg PO DAILY Yupelri Nebulizer 175mcg/3ml 175 mcg INHALATION DAILY Montelukast [Singulair] 10 mg PO DAILY HYDROcodone/APAP 7.5-325MG [Pullman 7.5-325] 1 tab PO Q4-6H PRN PRN Reason: Pain Dextroamphetamine/Amphetamine [Adderall Xr 30 mg Capsule] 30 mg PO DAILY DULoxetine HCL [Cymbalta] 60 mg PO BID Cariprazine HCl [Vraylar] 1.5 mg PO DAILY predniSONE [Deltasone] 20 mg PO DAILY allopurinoL 300 mg PO DAILY Omeprazole 40 mg PO DAILY Fluticasone/Umeclidin/Vilanter [Trelegy Ellipta 100-62.5-25] 1 inhalation INHALATION DAILY Cyclobenzaprine [Flexeril] 5 mg PO HS Atorvastatin [Lipitor] 40 mg PO DAILY Budesonide/Glycopyr/Formoterol [Breztri Aerosphere Inhaler] 1 puff INHALATION DAILY Discharge Medication List Gabapentin 300 mg PO TID 03/02/20 [History] rOPINIRole HCL [Requip] 3 mg PO HS 03/02/20 [History] traZODone HCL [Desyrel] 150 mg PO HS 03/02/20 [History] Atorvastatin [Lipitor] 40 mg PO DAILY 02/18/25 [History] Budesonide/Glycopyr/Formoterol [Breztri Aerosphere Inhaler] 1 puff INHALATION DAILY 02/18/25 [History] Cariprazine HCl [Vraylar] 1.5 mg PO DAILY 02/18/25 [History] Cyclobenzaprine [Flexeril] 5 mg PO HS 02/18/25 [History] DULoxetine HCL [Cymbalta] 60 mg PO BID 02/18/25 [History] Dextroamphetamine/Amphetamine [Adderall Xr 30 mg Capsule] 30 mg PO DAILY 02/18/25 [History] Fluticasone/Umeclidin/Vilanter [Trelegy Ellipta 100-62.5-25] 1 inhalation INHAL ATION DAILY 02/18/25 [History] HYDROcodone/APAP 7.5-325MG [Pullman 7.5-325] 1 tab PO Q4-6H PRN 02/18/25 [History] Montelukast [Singulair] 10 mg PO DAILY 02/18/25 [History] Omeprazole 40 mg PO DAILY 02/18/25 [History] Yupelri Nebulizer 175mcg/3ml 175 mcg INHALATION DAILY 02/18/25 [History] allopurinoL 300 mg PO DAILY 02/18/25 [History] predniSONE [Deltasone] 20 mg PO DAILY 02/18/25 [History] tadalafiL 10 mg PO DAILY 02/18/25 [History] Follow up Appointment(s)/Referral(s): Justin Corona PAC [PHYSICIAN [employer] MAGISTRATE] - 03/09/25 9:50 am [facility], [NON-STAFF] - Patient Instructions/Handouts: Anterior Hip Replacement (GEN) Activity/Diet/Wound Care/Special Instructions: Orthopedic Discharge Instructions: 1. Wound care and infection precautions, keep incision dry and covered while showering, no lotions, creams, moisturizers. No soaking, pools, hot tubs. Do not scrub over incision. 2. Weight-bear as tolerated with walker / cane until follow-up. 3. Ice and elevate when necessary. Do not exceed 20 minutes per hour with ice pack. 4. Utilize compression sleeve until seen at first follow up appointment. 5. Pain meds and anticoagulants per prescription. 6. Pain medication has potential to cause constipation. Increase oral fluid and fiber intake. Contact primary care provider if you have not had a bowel movement within 48 hours after discharge. 7. No anti-inflammatory medication until discussed at first post operative visit, this including Motrin, Aleve, Mobic, Diclofenac. 8. Follow up in office at 2 weeks postop with Jey Martinez PA-C / Justin Corona PA-C 9. Follow up with your primary care doctor 7-10 days after discharge. 10. Contact [facility] with any questions, . Keep incision clean, dry, intact. While showering, cover fusion tape with Saran wrap. Keep fusion tape on until follow-up appointment in office in 2 weeks. Discharge Disposition: HOME WITH HOME HEALTH SERVICES
--- NOTE | 2025-02-23 12:22 | P.PN ---
Subjective Progress Note Date: 02/23/25 Principal diagnosis: Stage IV avascular necrosis right hip Patient was seen at bedside this morning lying in summary composition with bulky postoperative dressing present over right hip. Patient says he did do well with therapy this morning walked on the hallway and up on steps. He says he does need a walker for home. He says he does have a cane. He says he has urinated on his own without issue since surgery yesterday. No bowel movement yet, however he says he has been passing gas. He denies any other issues at this time. Objective - Vital Signs Vital signs: Vital Signs Temp 98 F 02/23/25 08:00 Pulse 98 02/23/25 08:00 Resp 17 02/23/25 08:00 BP 131/73 02/23/25 08:00 Pulse Ox 94 L 02/23/25 01:10 FiO2 Intake & Output 02/22/25 02/23/25 02/23/25 18:59 06:59 18:59 Intake Total 951 1000 240 Output Total 300 Balance 651 1000 240 Weight 90.6 kg Intake: IV 951 Oral 1000 240 Output: Estimated Blood Loss 300 Other: Voiding Method Toilet # Voids 3 - Exam Right hip: Incision is clean, dry, and intact. The exofin fusion tape is in good condition. There is minimal soft tissue swelling and ecchymosis surrounding the medial and lateral aspects of the incision. Calf is soft, no tenderness with palpation. Plantar flexion, dorsiflexion, EHL, FHL are intact. Sensory exam to light touch throughout the extremity is intact, dorsal pedis pulses 2+. - Labs CBC & Chem 7: 02/23/25 03:43 Labs: Abnormal Lab Results - Last 24 Hours (Table) 02/23/25 Range/Units 03:43 WBC 14.16 H (4.50-10.00) X 10*3/uL RBC 3.28 L (4.40-5.60) X 10*6/uL Hgb 10.9 L (13.0-17.0) g/dL Hct 32.7 L (39.6-50.0) % MCV 99.7 H (80.0-97.0) FL MCH 33.2 H (27.0-32.0) pg Immature Gran # 0.07 H (0.00-0.04) X 10*3/uL Neutrophils # 11.41 H (1.80-7.70) X 10*3/uL Monocytes # 1.26 H (0.20-1.00) X 10*3/uL Eosinophils # 0 L (0.04-0.35) X 10*3/uL Assessment and Plan Assessment: Stage IV avascular necrosis right hip - Postop day 1 status post direct anterior right total hip arthroplasty Plan: 1. Stage IV avascular necrosis right hip -direct anterior right total hip arthroplasty performed yesterday, 02/22/2025. Patient stable at bedside's morning. Patient did well with therapy. Discharge home today with health services. prescription for walker was signed 2. Appreciate medical management 3. Pain management -[place]; gabapentin; Flexeril 4. DVT prophylaxis -Xarelto in hospital. Going home with Eliquis 2.5 mg twice daily x 2 weeks 5. GI prophylaxis -senna 6. PT/OT -weightbearing as tolerated with walker 7. Encourage incentive spirometer use 8. Discharge planning -discharge home today with health services Time with Patient: Less than 30
== END 2025-02-23 13:50 | disposition home health service (06) ==
LOC: OR 05:40 → 4SSUR 09:18 → OR 02-23 13:50
PROVIDERS: ATTEND Orthopaedic Surgery
DX: M87.9 Osteonecrosis, unspecified (principal); G89.18 Other acute postprocedural pain; I10 Essential (primary) hypertension; E78.5 Hyperlipidemia, unspecified; J44.9 Chronic obstructive pulmonary disease, unspecified; I27.20 Pulmonary hypertension, unspecified; G62.9 Polyneuropathy, unspecified; K21.9 Gastro-esophageal reflux disease without esophagitis; G89.29 Other chronic pain; M54.50 Low back pain, unspecified; F41.9 Anxiety disorder, unspecified; F32.A Depression, unspecified; Z79.51 Long term (current) use of inhaled steroids; Z79.52 Long term (current) use of systemic steroids; Z79.899 Other long term (current) drug therapy; Z99.81 Dependence on supplemental oxygen; Z87.81 Personal history of (healed) traumatic fracture; Z91.030 Bee allergy status
CPT/HCPCS: 27130; 94640; 97162; 97166; 64473; 86900; 86901; 85025; 86850; 73501; C1776; J2250; J1100; J0690 ×3; J2405; J2003; J3010; J1171 ×2; J2795; J2704; J7512; J2371